=== PATIENT | male | born 1950 | race Caucasian/White ===

== ENCOUNTER → 2020-07-29 18:10 | Outpatient (BNVA) | payer MEDICARE, SELFPAY | PROVIDERS: Visit Provider Emergency Medicine | DX: I50.9 Heart failure, unspecified (principal); R06.02 Shortness of breath; J43.9 Emphysema, unspecified; J90 Pleural effusion, not elsewhere classified | CPT/HCPCS: 71046; 80053; 83880; 84443 ==

== ENCOUNTER → 2020-11-16 11:06 | Outpatient (BNVA) | payer MEDICARE, SELFPAY | PROVIDERS: PCP Nurse Practitioner Family; Visit Provider Specialist | DX: R25.1 Tremor, unspecified (principal); E11.42 Type 2 diabetes mellitus with diabetic polyneuropathy; Z79.84 Long term (current) use of oral hypoglycemic drugs | CPT/HCPCS: 99204 ==